=== PATIENT | male | born 1980 | race Caucasian/White ===

== ENCOUNTER 2021-09-14 15:15 | Inpatient (IN) | payer OTHER ==
[2021-09-14] MEDS ORDERED: BISMUTH SUBSALICYLATE 524 MG/30 ML PO PRN (17:50)
[2021-09-14] MEDS ORDERED: MENTHOL/PHENOL 1 EACH UD MM PRN (17:50)
[2021-09-14] MEDS ORDERED: MAGNESIUM CITRATE 300 ML BOTTLE PO PRN (17:50)
[2021-09-14] MEDS ORDERED: ONDANSETRON *ODT* 4 MG TABLET SL PRN (17:50)
[2021-09-14] MEDS ORDERED: ACETAMINOPHEN 325 MG TABLET (FP) PO PRN ×2 (17:50)
[2021-09-14] MEDS ORDERED: MAGNESIUM HYDROX 2400MG/30ML ORAL SUSPENSION 30 ML CUP PO PRN (17:50)
[2021-09-14] MEDS ORDERED: IBUPROFEN 400 MG TABLET (FP) PO PRN (17:50)
[2021-09-14] MEDS ORDERED: MAG HYDROX/AL HYDROX/SIMETH 30 ML UNIT-DOSE CUP PO PRN (17:50)
[2021-09-14 17:53] VITALS: BMI 31.8
[2021-09-14] MEDS: THIAMINE HCL 100 MG TABLET (FP) PO SCH (22:01)
[2021-09-14] MEDS: hydrOXYzine PAMOATE 25 MG CAPSULE (FP) PO PRN (22:02)
[2021-09-15] MEDS ORDERED: LOPERAMIDE HCL 2 MG CAPSULE PO ONE (08:52)
[2021-09-15] MEDS ORDERED: diazePAM 5 MG TABLET PO PRN (08:53)
[2021-09-15] MEDS ORDERED: methaDONE HCL 10 MG TABLET ONE (09:51)
[2021-09-15] MEDS ORDERED: methaDONE HCL 40 MG DISPERSABLE TABLET ONE (09:52)
[2021-09-15] MEDS ORDERED: methaDONE HCL 10 MG TABLET PO ONE (10:00)
[2021-09-15] MEDS ORDERED: methaDONE 40 MG, methaDONE 30 MG PO ONE (10:00)
[2021-09-15] MEDS: PRENATAL VITAMINS W/ FOLIC ACID TABLET (FP) PO SCH (10:02)
[2021-09-15 10:36] LABS: HEMATOCRIT 34.9 % (35.4-49); HEMOGLOBIN 11.6 GM/dL (11.7-16.9); MCH 29.8 pg (25.7-33.7); MCHC 33.2 g/dl (32.0-35.9); MEAN CELL VOLUME 89.8 fl (80-96); PLATELET COUNT 131 10^3/uL (134-434); RBC 3.88 M/mm3 (4.00-5.60); RDW 14.2 % (11.9-15.9); WHITE BLOOD COUNT 3.3 K/mm3 (4.0-10.0)
[2021-09-15 10:45] LABS: ALBUMIN 3.2 g/dl (3.4-5.0); BLOOD UREA NITROGEN 19.6 mg/dL (7-18); CALCIUM 8.7 mg/dL (8.5-10.1)
[2021-09-15 10:48] LABS: CREATININE 0.7 mg/dL (0.55-1.3)
[2021-09-15 10:50] LABS: BILIRUBIN,TOTAL 0.2 mg/dL (0.2-1); TOT PROT 6.4 g/dl (6.4-8.2)
[2021-09-15] MEDS: diazePAM 5 MG TABLET PO SCH ×3 (11:00→22:17)
[2021-09-15] MEDS: hydrOXYzine PAMOATE 25 MG CAPSULE (FP) PO PRN ×3 (11:04→22:18)
[2021-09-15 13:10] LABS: HIV INTERPRETATION NEGATIVE (NEGATIVE)
[2021-09-15] MEDS: QUEtiapine FUMARATE 50 MG TABLET PO SCH (22:15)
[2021-09-15] MEDS: THIAMINE HCL 100 MG TABLET (FP) PO SCH (22:15)
[2021-09-16] MEDS ORDERED: methaDONE HCL 40 MG DISPERSABLE TABLET ONE (04:20)
[2021-09-16] MEDS ORDERED: methaDONE HCL 10 MG TABLET ONE (04:20)
[2021-09-16] MEDS ORDERED: methaDONE HCL 10 MG TABLET PO SCH (06:00)
[2021-09-16] MEDS: diazePAM 5 MG TABLET PO SCH ×2 (06:11→22:31)
[2021-09-16] MEDS: methaDONE 40 MG, methaDONE 30 MG PO SCH (06:12)
[2021-09-16] MEDS: hydrOXYzine PAMOATE 25 MG CAPSULE (FP) PO PRN ×4 (06:14→22:31)
[2021-09-16] MEDS: diazePAM 5 MG TABLET PO PRN ×2 (10:28→18:00)
[2021-09-16] MEDS: METHOCARBAMOL 500 MG TABLET PO PRN (10:28)
[2021-09-16] MEDS: PRENATAL VITAMINS W/ FOLIC ACID TABLET (FP) PO SCH (10:28)
[2021-09-16] MEDS: THIAMINE HCL 100 MG TABLET (FP) PO SCH (22:31)
[2021-09-16] MEDS: QUEtiapine FUMARATE 50 MG TABLET PO SCH (22:31)
[2021-09-17] MEDS ORDERED: methaDONE HCL 40 MG DISPERSABLE TABLET ONE (04:23)
[2021-09-17] MEDS ORDERED: methaDONE HCL 10 MG TABLET ONE (04:23)
[2021-09-17] MEDS: diazePAM 5 MG TABLET PO SCH ×2 (05:33→17:43)
[2021-09-17] MEDS: methaDONE 40 MG, methaDONE 30 MG PO SCH (05:33)
[2021-09-17] MEDS: hydrOXYzine PAMOATE 25 MG CAPSULE (FP) PO PRN ×4 (05:36→22:30)
[2021-09-17] MEDS: PRENATAL VITAMINS W/ FOLIC ACID TABLET (FP) PO SCH (10:29)
[2021-09-17] MEDS: METHOCARBAMOL 500 MG TABLET PO PRN (10:29)
[2021-09-17] MEDS: THIAMINE HCL 100 MG TABLET (FP) PO SCH (22:28)
[2021-09-17] MEDS: QUEtiapine FUMARATE 50 MG TABLET PO SCH (22:28)
[2021-09-17] MEDS: MELATONIN 5 MG TABLETS PO PRN (22:29)
[2021-09-18] MEDS ORDERED: methaDONE HCL 40 MG DISPERSABLE TABLET ONE (05:08)
[2021-09-18] MEDS ORDERED: methaDONE HCL 10 MG TABLET ONE (05:08)
[2021-09-18] MEDS: methaDONE 40 MG, methaDONE 30 MG PO SCH (05:45)
[2021-09-18] MEDS ORDERED: diazePAM 5 MG TABLET PO ONE (06:00)
[2021-09-18] MEDS: PRENATAL VITAMINS W/ FOLIC ACID TABLET (FP) PO SCH (10:03)
[2021-09-18] MEDS: hydrOXYzine PAMOATE 25 MG CAPSULE (FP) PO PRN (22:12)
[2021-09-18] MEDS: THIAMINE HCL 100 MG TABLET (FP) PO SCH (22:12)
[2021-09-18] MEDS: QUEtiapine FUMARATE 50 MG TABLET PO SCH (22:12)
[2021-09-18] MEDS: MELATONIN 5 MG TABLETS PO PRN (22:13)
[2021-09-19] MEDS ORDERED: methaDONE HCL 10 MG TABLET ONE (04:27)
[2021-09-19] MEDS ORDERED: methaDONE HCL 40 MG DISPERSABLE TABLET ONE (04:27)
[2021-09-19] MEDS: methaDONE 40 MG, methaDONE 30 MG PO SCH (06:08)
[2021-09-19] MEDS: diazePAM 5 MG TABLET PO SCH (06:10)
[2021-09-19] MEDS: hydrOXYzine PAMOATE 25 MG CAPSULE (FP) PO PRN ×2 (06:11→10:40)
[2021-09-19 09:45] VITALS: BP 116/73; PULSE 76; TEMP 97.3
[2021-09-19] MEDS: METHOCARBAMOL 500 MG TABLET PO PRN (10:40)
[2021-09-19] MEDS: PRENATAL VITAMINS W/ FOLIC ACID TABLET (FP) PO SCH (10:40)
== END 2021-09-19 11:43 | disposition other institution (70) | DRG 773 ==
LOC: YASAS 15:15 → Y6N 20:20
PROVIDERS: ADMIT Allergy & Immunology; ATTEND Allergy & Immunology
PROC: HZ2ZZZZ Detoxification Services for Substance Abuse Treatment (ICD-10-PCS; principal; 2021-09-14)
DX: F10.230 Alcohol dependence with withdrawal, uncomplicated (principal); F13.230 Sedative, hypnotic or anxiolytic dependence with withdrawal, uncomplicated; F11.20 Opioid dependence, uncomplicated; F14.20 Cocaine dependence, uncomplicated; F12.20 Cannabis dependence, uncomplicated; F19.282 Other psychoactive substance dependence with psychoactive substance-induced sleep disorder; F19.24 Other psychoactive substance dependence with psychoactive substance-induced mood disorder; F39 Unspecified mood [affective] disorder; F41.9 Anxiety disorder, unspecified; D61.818 Other pancytopenia; R79.89 Other specified abnormal findings of blood chemistry; Z62.810 Personal history of physical and sexual abuse in childhood
CPT/HCPCS: 36415; 80053; 85027; 86780; 87389; C9803; U0003; U0005